=== PATIENT | female | born 1995 | race Caucasian/White ===

== ENCOUNTER 2019-07-11 07:48 | Inpatient (IN) ==
[2019-07-11 08:19] LABS: URINE SOURCE VOIDED
[2019-07-11 08:25] LABS: BILIRUBIN URINE NEGATIVE (NEGATIVE); BLOOD URINE MODERATE (NEGATIVE); COLOR YELLOW; GLUCOSE URINE NEGATIVE (NEGATIVE); KETONE URINE NEGATIVE (NEGATIVE); LEUKOCYTES URINE SMALL (NEGATIVE); NITRITE URINE NEGATIVE (NEGATIVE); PH URINE 6.5; PROTEIN URINE 30 mg/dL (NEGATIVE); SP GRAVITY URINE 1.019; TURBIDITY URINE HAZY (CLEAR); UROBILINOGEN URINE NORMAL (NORMAL)
[2019-07-11] MEDS ORDERED: REGLAN PO PRN (09:11)
[2019-07-11] MEDS ORDERED: KEFZOL 2 GM/D5W 2 GM/50 ML IVPB IV PRN (09:11)
[2019-07-11] MEDS ORDERED: PEPCID PO PRN ×2 (09:11)
[2019-07-11] MEDS ORDERED: ZOFRAN IV PRN (09:11)
[2019-07-11] MEDS ORDERED: STADOL IV PRN (09:11)
[2019-07-11] MEDS ORDERED: LR 500 ML IV ONE (09:11)
[2019-07-11] MEDS ORDERED: TYLENOL PO PRN (09:11)
[2019-07-11] MEDS ORDERED: PEPCID IV PRN (09:11)
[2019-07-11] MEDS ORDERED: SODIUM CHLORIDE 0.9% INJ SCH (09:15)
[2019-07-11] MEDS ORDERED: PITOCIN 30 UNITS/NS 30 UNIT/500 ML IV.SOLN IV SCH ×2 (09:15→18:30)
[2019-07-11] MEDS: LR 1,000 ML IV SCH ×3 (09:20→11:21)
[2019-07-11 09:40] LABS: BASO# 0.02 X1000 (0.0-0.2); BASO% 0.3 % (0.0-0.8); EOS# 0.11 X1000 (0.0-0.7); EOS% 1.5 % (0.0-10.0); HEMATOCRIT 39.4 % (37.0-47.0); HEMOGLOBIN 12.8 g/dL (12.0-16.0); LYMPH# 1.91 X1000 (1.2-3.4); LYMPH% 25.4 % (20.5-51.1); MCH 29.8 PG (27-31); MCHC 32.5 g/dL (33-37); MCV 91.6 FL (81-99); MONO# 0.49 X1000 (0.11-0.59); MONO% 6.5 % (1.7-9.3); MPV 10.1 FL (7.4-10.4); NEUT# 4.98 X1000 (1.4-6.5); NEUT% 66.3 % (42.2-75.2); PLT 225 X1000 (130-400); RDW 12.7 % (11.5-14.5); WBC 7.51 X1000 (4.8-10.8)
[2019-07-11] MEDS ORDERED: NAROPIN 0.2% INJ ONE (10:00)
[2019-07-11] MEDS ORDERED: FENTANYL-BUPIV-NS 500 MCG-0.125% 250 ML EPIDURAL SCH (10:00)
--- NOTE | 2019-07-11 11:06 | HISTORY AND PHYSICAL ---
HISTORY OF PRESENT ILLNESS: The patient is a 23-year-old 1, para 0, presenting to Labor and Delivery at 38 weeks gestation with labor and spontaneous rupture membranes. PREVIOUS MEDICAL HISTORY: Pertinent for mild asthma. PREVIOUS SURGICAL HISTORY: Negative. OBSTETRICAL HISTORY: Index . GYNECOLOGICAL HISTORY: Normal. Allergies: NKDA SOCIAL HISTORY: Positive for tobacco. Was incarcerated recently. REVIEW OF SYSTEMS: Negative for chest pain, shortness of breath, headache, cough, runny nose, fever, sore throat. PHYSICAL EXAMINATION: GENERAL: This is a well-developed, well-nourished, young woman appearing her stated age. HEENT: Grossly normal. LUNGS: Unlabored breathing. HEART: Regular rate and rhythm. ABDOMEN: Gravid. PELVIC EXAM: Per RN. EXTREMITIES: Without clubbing, cyanosis. Trace edema. heart tones are category 1. Contractions every 3 minutes. ASSESSMENT: 1. A 23-year-old 1 at term with labor and rupture membranes. 2. Group B negative. 3. Rubella nonimmune. Treatment after delivery. 4. Labor. Anticipate normal spontaneous vaginal delivery. 5. Epidural as needed. 6. Estimated weight is [address] [facility]
[2019-07-11 12:48] LABS: UR AMPHETAMINES QUAL NONE DETECTED (NONE DETECT); UR BARBITUATES QUAL NONE DETECTED (NONE DETECT); UR BENZODIAZEPIN QUAL NONE DETECTED (NONE DETECT); UR CANNABINOIDS QUAL NONE DETECTED (NONE DETECT); UR COCAINE QUAL NONE DETECTED (NONE DETECT); UR METHADONE QUAL NONE DETECTED (NONE DETECT); UR OPIATES QUAL NONE DETECTED (NONE DETECT); UR OXYCODONE QUAL NONE DETECTED (NONE DETECT); UR PCP QUAL NONE DETECTED (NONE DETECT)
[2019-07-11] MEDS ORDERED: XYLOCAINE-MPF 1% INJ ONE ×2 (13:21→15:34)
--- NOTE | 2019-07-11 18:20 | OPERATIVE NOTE ---
PROCEDURE DATE: 07/11/2019 PROCEDURE: Normal spontaneous vaginal delivery. SURGEON: Levar Polk MD. ANESTHESIA: Epidural. ESTIMATED BLOOD LOSS: 300 mL. COMPLICATIONS: None. DESCRIPTION OF PROCEDURE: The patient presented in labor, underwent a normal labor followed by augmentation. Second stage of labor was approximately 45 minutes and delivered over a right labial laceration a live-born male infant, 7 pounds 12 ounces. was handed to the maternal abdomen. The cord was clamped x2 and cut. The placenta was delivered intact with a three-vessel cord spontaneously and the perineum was repaired with 3-0 Vicryl. Postprocedure, perineum is hemostatic and intact.
[2019-07-11] MEDS ORDERED: NORCO-5 PO PRN (18:28)
[2019-07-11] MEDS ORDERED: NORCO-10 PO PRN (18:28)
[2019-07-11] MEDS ORDERED: PITOCIN IM PRN (18:28)
[2019-07-11] MEDS ORDERED: BENADRYL PO PRN (18:28)
[2019-07-11] MEDS ORDERED: XYLOCAINE-MPF 1% INJ PRN (18:28)
[2019-07-11] MEDS ORDERED: M-M-R II VACCINE SUBQ ONE (18:28)
[2019-07-11] MEDS ORDERED: HYDROXYZINE IM PRN (18:28)
[2019-07-11] MEDS ORDERED: ATARAX PO PRN (18:28)
[2019-07-11] MEDS ORDERED: AMBIEN PO PRN (18:28)
[2019-07-11] MEDS ORDERED: CYTOTEC PO PRN (18:28)
[2019-07-11] MEDS ORDERED: BENADRYL IV PRN (18:28)
[2019-07-11] MEDS ORDERED: BOOSTRIX VACCINE IM ONE (18:28)
[2019-07-11] MEDS ORDERED: PITOCIN 20 UNITS/NS 20 UNITS/1,000 ML IV.SOLN IV SCH (18:30)
[2019-07-11] MEDS ORDERED: PITOCIN 20 UNITS/NS 20 UNITS/1,000 ML IV.SOLN ONE (18:33)
[2019-07-11] MEDS: MOTRIN PO PRN (22:18)
[2019-07-11] MEDS: PERICOLACE PO SCH (22:18)
[2019-07-11] MEDS: PERI MEDS (DERMOPLAST/NUPERCAINAL/TUCKS) MISC PRN (23:33)
[2019-07-12 05:08] LABS: BASO# 0.01 X1000 (0.0-0.2); BASO% 0.1 % (0.0-0.8); EOS# 0.12 X1000 (0.0-0.7); EOS% 1.1 % (0.0-10.0); HEMATOCRIT 32.2 % (37.0-47.0); HEMOGLOBIN 10.4 g/dL (12.0-16.0); IMM GRAN# 0.02 X1000 (0.0-0.04); IMM GRAN% 0.2 % (0.0-0.5); LYMPH# 2.37 X1000 (1.2-3.4); LYMPH% 21.8 % (20.5-51.1); MCH 30.1 PG (27-31); MCHC 32.3 g/dL (33-37); MCV 93.1 FL (81-99); MONO# 0.85 X1000 (0.11-0.59); MONO% 7.8 % (1.7-9.3); MPV 9.9 FL (7.4-10.4); NEUT# 7.48 X1000 (1.4-6.5); PLT 195 X1000 (130-400); RBC 3.46 XMIL (4.2-5.4); RDW 12.6 % (11.5-14.5); WBC 10.85 X1000 (4.8-10.8)
--- NOTE | 2019-07-12 07:50 | OB/GYN PROGRESS NOTE ---
- Subjective 23 yo PPD#1 s/p at 38 weeks, RNI, asthma Patient seen and examined. She states pain is controlled. She notes normal lochia. She is ambulating and voiding without difficulty. She is tolerating a regular diet and denies nausea/vomiting. She is bottle-feeding. She desires elective circumcision for infant boy. Discussed that this is an elective procedure, discussed R/B/A- risks include but are not limited to bleeding, infection, damage to organ. She desires to proceed. OB Physical Exam Vital Signs - 8 hr 07/12/19 04:00 Temperature 97.6 F Pulse Rate 70 Respiratory Rate 18 Blood Pressure 90/50 O2 Sat by Pulse Oximetry 100 - CONSTITUTIONAL General Appearance: appears well, alert, no apparent distress - EYES Eyes: PERRL/EOMI - HEAD, EARS, NOSE, MOUTH & THROAT HENMT: normocephalic/atraumatic - RESPIRATORY Respiratory: lungs clear, normal breath sounds, no respiratory distress - CARDIOVASCULAR Cardiovascular: regular rate, rhythm - GASTROINTESTINAL (ABDOMEN) Abdominal Exam: normal bowel sounds, soft, other (ATTP, fundus firm/below umbilicus) - MUSCULOSKELETAL Extremity: normal range of motion, non-tender, no pedal edema - NEUROLOGIC Neurologic: grossly normal - PSYCHIATRIC Psych/Mental Status: normal thought content Active Medications Generic Name Dose Route Start Last Admin Trade Name Freq PRN Reason Stop Dose Admin Acetaminophen 650 mg 07/11/19 09:11 Tylenol PO Q4-6H PRN PRN Headache Hydrocodone Bitart/Acetaminophen 1 each 07/11/19 18:28 [place]-10 PO Q3-4H PRN PRN Pain (7-10 on Pain Scale) Hydrocodone Bitart/Acetaminophen 1 each 07/11/19 18:28 [place]-5 PO Q3-4H PRN PRN Pain (1-6 on Pain Scale) Benzocaine 1 each 07/11/19 18:28 07/11/19 23:33 Zina Meds (Dermoplast/Nupercainal/Tucks) MISC 1 applicatn 3-4XDAY PRN PRN Administration episiotomy/hemorrhoids Diphenhydramine HCl 12.5 mg 07/11/19 18:28 Benadryl IV Q4H PRN PRN Itching Diphenhydramine HCl 25 mg 07/11/19 18:28 Benadryl PO Q4H PRN PRN Itching Famotidine 40 mg 07/11/19 09:11 Pepcid PO Q12H PRN PRN GI upset or indigestion Famotidine 20 mg 07/11/19 09:11 Pepcid IV Q12H PRN PRN GI upset or indigestion Hydroxyzine HCl 50 mg 07/11/19 18:28 Atarax PO Q3-4H PRN PRN Nausea Hydroxyzine HCl 50 mg 07/11/19 18:28 Hydroxyzine IM Q3-4H PRN PRN Nausea Oxytocin/Sodium Chloride 20 units in 1,000 mls @ 0 mls/hr 07/11/19 18:30 Pitocin 20 Units/Ns IV .Q0M IJEOMA As Directed Ibuprofen 800 mg 07/11/19 18:28 07/11/19 22:18 Motrin PO 800 mg Q8H PRN PRN Administration cramping Misoprostol 800 microgm 07/11/19 18:28 Cytotec PO PRN PRN Severe bleeding Ondansetron HCl 4 mg 07/11/19 09:11 Zofran IV PRN PRN Nausea Oxytocin 20 unit 07/11/19 18:28 Pitocin IM PRN PRN Severe bleeding Senna/Docusate Sodium 1 each 07/11/19 21:00 07/11/19 22:18 Pericolace PO 1 each QHS IJEOMA Administration Sodium Chloride 5 - 10 ml 07/11/19 09:15 Sodium Chloride 0.9% INJ DIRECTED IJEOMA Zolpidem Tartrate 10 mg 07/11/19 18:28 Ambien PO HS PRN PRN Sleep Laboratory Results - last 24 hr 07/11/19 07/11/19 07/11/19 07:45 07:45 08:00 WBC RBC Hgb Hct MCV MCH MCHC RDW Std Deviation Plt Count MPV Immature Gran % (Auto) Neut % (Auto) Lymph % (Auto) [place] % (Auto) Eos % (Auto) Baso % (Auto) Immature Gran # (Auto) Neut # (Auto) Lymph # (Auto) [place] # (Auto) Eos # (Auto) Baso # (Auto) Urine Source VOIDED Urine Color YELLOW Urine Turbidity HAZY Urine pH 6.5 Ur Specific [place] 1.019 Urine Protein 30 A Ur Glucose (Stick) NEGATIVE Ur Ketones (Stick) NEGATIVE Urine Blood MODERATE A Urine Nitrite NEGATIVE Urine Bilirubin NEGATIVE Urobilinogen Dipstick NORMAL Urine Leukocytes SMALL A Membranes Rupture POSITIVE Urine Opiates Screen NONE DETECTED Ur Oxycodone Screen NONE DETECTED Ur Methadone, Qual NONE DETECTED Ur Barbiturates Screen NONE DETECTED Ur Phencyclidine Scrn NONE DETECTED Ur Amphetamines Screen NONE DETECTED U Benzodiazepines Scrn NONE DETECTED Urine Cocaine Screen NONE DETECTED U Cannabinoids Screen NONE DETECTED RPR 07/11/19 07/11/19 07/12/19 09:15 09:15 04:57 WBC 7.51 10.85 H RBC 4.30 3.46 L Hgb 12.8 10.4 L D Hct 39.4 32.2 L MCV 91.6 93.1 MCH 29.8 30.1 MCHC 32.5 L 32.3 L RDW Std Deviation 12.7 12.6 Plt Count 225 195 MPV 10.1 9.9 Immature Gran % (Auto) 0.0 0.2 Neut % (Auto) 66.3 69.0 Lymph % (Auto) 25.4 21.8 [place] % (Auto) 6.5 7.8 Eos % (Auto) 1.5 1.1 Baso % (Auto) 0.3 0.1 Immature Gran # (Auto) 0.00 0.02 Neut # (Auto) 4.98 7.48 H Lymph # (Auto) 1.91 2.37 [place] # (Auto) 0.49 0.85 H Eos # (Auto) 0.11 0.12 Baso # (Auto) 0.02 0.01 Urine Source Urine Color Urine Turbidity Urine pH Ur Specific [place] Urine Protein Ur Glucose (Stick) Ur Ketones (Stick) Urine Blood Urine Nitrite Urine Bilirubin Urobilinogen Dipstick Urine Leukocytes Membranes Rupture Urine Opiates Screen Ur Oxycodone Screen Ur Methadone, Qual Ur Barbiturates Screen Ur Phencyclidine Scrn Ur Amphetamines Screen U Benzodiazepines Scrn Urine Cocaine Screen U Cannabinoids Screen RPR NON-REACTIVE OB Assessment & Plan (1) Status post vaginal delivery Status: Acute Plan: 23 yo PPD#1 s/p at 38 weeks with RNI, asthma 1. Hd stable, afebrile 2. Routine PP Care 3. Bottle-feeding 4. Encourage ambulation 5. Desires elective circumcision for infant. Discussed R/B/A and consent signed.
[2019-07-12] MEDS: MOTRIN PO PRN ×2 (08:22→15:01)
[2019-07-12] MEDS ORDERED: RECOTHROM TOP PRN (08:38)
[2019-07-12] MEDS ORDERED: SWEET-EASE PO ONE (08:38)
[2019-07-12] MEDS ORDERED: XYLOCAINE-MPF 1% INJ ONE (08:38)
[2019-07-12] MEDS: PERI MEDS (DERMOPLAST/NUPERCAINAL/TUCKS) MISC PRN (15:10)
[2019-07-12] MEDS: PERICOLACE PO SCH (20:12)
[2019-07-13] MEDS: MOTRIN PO PRN ×2 (02:52→11:07)
--- NOTE | 2019-07-13 07:12 | OB/GYN PROGRESS NOTE ---
- Subjective 23 yo PPD #2 s/p at 38 weeks. Patient states decreased lochia. Patient using motrin for pain and states 5 out of 10 abdominal pain, but it is resolving. She is ambulating and voiding stool and urine without difficulty. She is tolerating a regular diet and denies nausea or vomiting. Patient states she plans to bottle-feed. She has no plans for contraceptive measures at this time. OB Physical Exam Vital Signs - 8 hr 07/13/19 02:53 Temperature 96.9 F L Pulse Rate 78 Respiratory Rate 18 Blood Pressure 117/58 O2 Sat by Pulse Oximetry 100 - CONSTITUTIONAL General Appearance: appears well, alert, no apparent distress - EYES Eyes: pink conjunctivae - HEAD, EARS, NOSE, MOUTH & THROAT HENMT: normocephalic/atraumatic, moist mucous membranes - NECK Neck: non-tender, supple - RESPIRATORY Respiratory: chest non-tender, lungs clear, normal breath sounds, no pleuratic chest pain, no respiratory distress - CARDIOVASCULAR Cardiovascular: normal peripheral pulses, regular rate, rhythm, no edema, no gallop, no JVD, no murmur - GASTROINTESTINAL (ABDOMEN) Abdominal Exam: normal bowel sounds, non tender, soft (Uterus firm and 2cm below the umbilicus) - MUSCULOSKELETAL Extremity: non-tender, normal inspection, no pedal edema, no calf tenderness Peripheral Pulses: dorsalis-pedis (R): 2+, dorsalis-pedis (L): 2+ - SKIN Integumentary: normal color, normal turgor, warm/dry - PSYCHIATRIC Psych/Mental Status: normal mood/affect, oriented x 3 Active Medications Generic Name Dose Route Start Last Admin Trade Name Freq PRN Reason Stop Dose Admin Acetaminophen 650 mg 07/11/19 09:11 Tylenol PO Q4-6H PRN PRN Headache Hydrocodone Bitart/Acetaminophen 1 each 07/11/19 18:28 07/12/19 19:06 [place]-10 PO 1 each Q3-4H PRN PRN Administration Pain (7-10 on Pain Scale) Hydrocodone Bitart/Acetaminophen 1 each 07/11/19 18:28 [place]-5 PO Q3-4H PRN PRN Pain (1-6 on Pain Scale) Benzocaine 1 each 07/11/19 18:28 07/12/19 15:10 Zina Meds (Dermoplast/Nupercainal/Tucks) MISC 1 applicatn 3-4XDAY PRN PRN Administration episiotomy/hemorrhoids Diphenhydramine HCl 12.5 mg 07/11/19 18:28 Benadryl IV Q4H PRN PRN Itching Diphenhydramine HCl 25 mg 07/11/19 18:28 Benadryl PO Q4H PRN PRN Itching Famotidine 40 mg 07/11/19 09:11 Pepcid PO Q12H PRN PRN GI upset or indigestion Famotidine 20 mg 07/11/19 09:11 Pepcid IV Q12H PRN PRN GI upset or indigestion Hydroxyzine HCl 50 mg 07/11/19 18:28 Atarax PO Q3-4H PRN PRN Nausea Hydroxyzine HCl 50 mg 07/11/19 18:28 Hydroxyzine IM Q3-4H PRN PRN Nausea Oxytocin/Sodium Chloride 20 units in 1,000 mls @ 0 mls/hr 07/11/19 18:30 Pitocin 20 Units/Ns IV .Q0M IJEOMA As Directed Ibuprofen 800 mg 07/11/19 18:28 07/13/19 02:52 Motrin PO 800 mg Q8H PRN PRN Administration cramping Misoprostol 800 microgm 07/11/19 18:28 Cytotec PO PRN PRN Severe bleeding Ondansetron HCl 4 mg 07/11/19 09:11 Zofran IV PRN PRN Nausea Oxytocin 20 unit 07/11/19 18:28 Pitocin IM PRN PRN Severe bleeding Senna/Docusate Sodium 1 each 07/11/19 21:00 07/12/19 20:12 Pericolace PO 1 each QHS IJEOMA Administration Sodium Chloride 5 - 10 ml 07/11/19 09:15 Sodium Chloride 0.9% INJ DIRECTED IJEOMA Zolpidem Tartrate 10 mg 07/11/19 18:28 Ambien PO HS PRN PRN Sleep Laboratory Last Values WBC 10.85 X1000 (4.8-10.8) H 07/12/19 04:57 RBC 3.46 XMIL (4.2-5.4) L 07/12/19 04:57 Hgb 10.4 g/dL (12.0-16.0) L D 07/12/19 04:57 Hct 32.2 % (37.0-47.0) L 07/12/19 04:57 MCV 93.1 FL (81-99) 07/12/19 04:57 MCH 30.1 PG (27-31) 07/12/19 04:57 MCHC 32.3 g/dL (33-37) L 07/12/19 04:57 RDW Std Deviation 12.6 % (11.5-14.5) 07/12/19 04:57 Plt Count 195 X1000 (130-400) 07/12/19 04:57 MPV 9.9 FL (7.4-10.4) 07/12/19 04:57 Immature Gran % (Auto) 0.2 % (0.0-0.5) 07/12/19 04:57 Neut % (Auto) 69.0 % (42.2-75.2) 07/12/19 04:57 Lymph % (Auto) 21.8 % (20.5-51.1) 07/12/19 04:57 [place] % (Auto) 7.8 % (1.7-9.3) 07/12/19 04:57 Eos % (Auto) 1.1 % (0.0-10.0) 07/12/19 04:57 Baso % (Auto) 0.1 % (0.0-0.8) 07/12/19 04:57 Immature Gran # (Auto) 0.02 X1000 (0.0-0.04) 07/12/19 04:57 Neut # (Auto) 7.48 X1000 (1.4-6.5) H 07/12/19 04:57 Lymph # (Auto) 2.37 X1000 (1.2-3.4) 07/12/19 04:57 [place] # (Auto) 0.85 X1000 (0.11-0.59) H 07/12/19 04:57 Eos # (Auto) 0.12 X1000 (0.0-0.7) 07/12/19 04:57 Baso # (Auto) 0.01 X1000 (0.0-0.2) 07/12/19 04:57 Urine Source VOIDED 07/11/19 07:45 Urine Color YELLOW 07/11/19 07:45 Urine Turbidity HAZY (CLEAR) 07/11/19 07:45 Urine pH 6.5 07/11/19 07:45 Ur Specific [place] 1.019 07/11/19 07:45 Urine Protein 30 mg/dL (NEGATIVE) A 07/11/19 07:45 Ur Glucose (Stick) NEGATIVE mg/dL (NEGATIVE) 07/11/19 07:45 Ur Ketones (Stick) NEGATIVE mg/dL (NEGATIVE) 07/11/19 07:45 Urine Blood MODERATE (NEGATIVE) A 07/11/19 07:45 Urine Nitrite NEGATIVE (NEGATIVE) 07/11/19 07:45 Urine Bilirubin NEGATIVE (NEGATIVE) 07/11/19 07:45 Urobilinogen Dipstick NORMAL mg/dL (NORMAL) 07/11/19 07:45 Urine Leukocytes SMALL (NEGATIVE) A 07/11/19 07:45 Membranes Rupture POSITIVE 07/11/19 08:00 Urine Opiates Screen NONE DETECTED (NONE DETECT) 07/11/19 07:45 Ur Oxycodone Screen NONE DETECTED (NONE DETECT) 07/11/19 07:45 Ur Methadone, Qual NONE DETECTED (NONE DETECT) 07/11/19 07:45 Ur Barbiturates Screen NONE DETECTED (NONE DETECT) 07/11/19 07:45 Ur Phencyclidine Scrn NONE DETECTED (NONE DETECT) 07/11/19 07:45 Ur Amphetamines Screen NONE DETECTED (NONE DETECT) 07/11/19 07:45 U Benzodiazepines Scrn NONE DETECTED (NONE DETECT) 07/11/19 07:45 Urine Cocaine Screen NONE DETECTED (NONE DETECT) 07/11/19 07:45 U Cannabinoids Screen NONE DETECTED (NONE DETECT) 07/11/19 07:45 RPR NON-REACTIVE (NONREACTIVE) 07/11/19 09:15 OB Assessment & Plan (1) Status post vaginal delivery Status: Acute Plan: 1.Routine Post- care 2. Bottle-feeding 3. Encourage ambulation 4. Contraceptive measures- counselled and denies any contraceptive measures at this time 5. Follow-up in 6 weeks.
[2019-07-13] MEDS: PERI MEDS (DERMOPLAST/NUPERCAINAL/TUCKS) MISC PRN (11:08)
[2019-07-13 11:36] VITALS: BP 116/63
== END 2019-07-13 11:55 | disposition home or self-care (01) | DRG 807 ==
LOC: OPLD 07:48 → LD 07:51
PROVIDERS: ADMIT Obstetrics & Gynecology; ATTEND Obstetrics & Gynecology